=== PATIENT | male | born 1975 ===

== ENCOUNTER → 2022-03-11 | Outpatient (CLI) | payer OTHER | END | disposition home or self-care (01) | LOC: RAH 12:39 | PROVIDERS: ATTEND Family Medicine | DX: R22.32 Localized swelling, mass and lump, left upper limb (principal); R22.31 Localized swelling, mass and lump, right upper limb; R22.2 Localized swelling, mass and lump, trunk | CPT/HCPCS: 76604; 76705; 76882 ==